=== PATIENT | male | born 1975 | race Two or more races ===

== ENCOUNTER 2021-12-08 10:08 | Emergency (ER) | payer MEDICAID, OTHER ==
[~2021-12-08] VITALS: Ht 182.9 cm; Wt 112.5 kg
[2021-12-08 10:09] VITALS: BP 125/60
[2021-12-08] MEDS ORDERED: IBUP800T27 PO (11:59)
== END 2021-12-08 12:08 | disposition home or self-care (01) ==
LOC: ER 10:08
DX: S83.91XA Sprain of unspecified site of right knee, initial encounter (principal); Z79.1 Long term (current) use of non-steroidal anti-inflammatories (NSAID); W18.39XA Other fall on same level, initial encounter; Y93.89 Activity, other specified; Y92.89 Other specified places as the place of occurrence of the external cause; Y99.8 Other external cause status
CPT/HCPCS: 29505; 73562